=== PATIENT | male | born 1995 | race African-American/Black ===

== ENCOUNTER 2024-03-10 14:05 | Emergency (ER) | payer MEDICAID, OTHER ==
[~2024-03-10] VITALS: Ht 185.4 cm; Wt 78.0 kg
[2024-03-10 14:47] VITALS: BP 118/71; RESP 18; TEMP 98.9; O2SAT 99
[2024-03-10 14:49] VITALS: PULSE 115; O2SAT 99
== END 2024-03-10 21:35 | disposition left against medical advice (07) ==
LOC: ER 14:19
DX: J45.909 Unspecified asthma, uncomplicated (principal)
CPT/HCPCS: 71045; 93005; 99283; Z7610